=== PATIENT | male | born 1970 | race Caucasian/White ===

== ENCOUNTER 2017-05-14 21:41 | Emergency (ER) | payer SELFPAY ==
[2017-05-14] MEDS ORDERED: EPINEPHrine 1MG/10ML SYRINGE 1.5IN ONE (21:42)
== END 2017-05-15 03:38 | disposition expired ==
LOC: EDBD 21:41 → M ED 21:41
DX: I46.9 Cardiac arrest, cause unspecified (principal); I21.3 ST elevation (STEMI) myocardial infarction of unspecified site
CPT/HCPCS: 36415; 92950; 99285; G0480